=== PATIENT | female | born 1970 | race Hispanic/Latino ===

== ENCOUNTER 2019-04-23 21:16 | Emergency (ER) | payer BC ==
[~2019-04-23] VITALS: Ht 170.2 cm; Wt 90.7 kg
--- OUTSIDE RECORDS SUMMARY | 2019-04-23 21:19 | XMS REPORT | Continuity of Care Document ---
Author Author iTiffin Address Unknown Phone Unavailable Care Team Providers Care Security Operations Specialist Name Role Phone [employer] Unavailable Unavailable Problems Problem Status Onset Date Classification Date Reported Comments Source Systemic lupus erythematosus Active 08/24/2017 Problem 02/23/2018 [facility] Hypothyroidism Active 08/24/2017 Problem 02/23/2018 [facility] Medications Medication Details Route Status Patient Instructions Ordering Provider Order Date Source Levothyroxine 125 McG Tablet Take 125 mcg by mouth daily. Oral No Longer Active 08/24/2017 [facility] Hydroxychloroquine 200 Mg Tablet Plaquenil 200 Mg Tablet Take 2 tablets by mouth daily. Oral Active 08/24/2017 [facility] Prednisone 5 Mg Tablet Take 1 tablet by mouth. Oral Active 08/24/2017 [facility] Levothyroxine 88 McG Tablet Synthroid 88 McG Tablet Take 1 tablet by mouth daily One daily, 1.5 tabs on sundays. Oral Active 08/24/2017 [facility] Famotidine 20 Mg Tablet Pepcid 20 Mg Tablet Take 1 tablet by mouth 2 times daily. Oral Active 08/24/2017 [facility] Allergies, Adverse Reactions, Alerts No Known Medication Allergies Immunizations Immunization Date Given Site Status Last Updated Comments Source Influenza <Unspecified> 07/25/2017 completed [facility] TDap (Tetanus Toxoid, Reduced Diphtheria Toxoid And Acellular Pertussis, Absorbed) 08/24/2014 completed [facility] Results Order Name Results Value Reference Range Date Interpretation Comments Source LUPUS ANTICOAGULANT PANEL DRVV Screen Ratio 1.00 Ratio 0.00 - 1.20 09/06/2017 [facility] LUPUS ANTICOAGULANT PANEL PTT-LA 30.7 Sec 26 - 40 09/06/2017 [facility] LUPUS ANTICOAGULANT PANEL LA Interpretation There is no evidence of lupus anticoagulant by two screening tests (DRVV and PTT-LA). Unless there is a clinical suspicion, no further testing for LA is indicated 09/06/2017 [facility] ANN ANN Screen Positive NEG 09/06/2017 Abnormal [facility] ANN ANN Pattern SSA/Ro present, not titered Pattern 09/06/2017 [facility] ANN Lab Interpretation Abnormal 09/06/2017 [facility] ANTI DSDNA BY CRITHIDIA Anti dsDNA Negative NEG Titer 09/06/2017 [facility] ANTI WEBBER AB Anti-Webber Negative EU/mL 09/06/2017 REFERENCE RANGE:
Negative<16
[id number]
Positive>20

[facility] ANTI WEBBER MANAGER EMERGENCY AB Anti-Sm/MANAGER EMERGENCY Negative EU/mL 09/06/2017 REFERENCE RANGE:
Negative<16
[id number]
Positive>20

[facility] ANTI-CARDIOLIP AB Anti-Cardiolip,IgG 6.9 GPL 09/06/2017 Negative<15
Indeterminate 15-22.5
Positive >22.5

[facility] ANTI-CARDIOLIP AB Anti-Cardiolip,IgM 8.9 MPL 09/06/2017 Negative<15
Indeterminate 15-22.5
Positive >22.5

[facility] ANTI-CARDIOLIP AB Anti-Cardiolip,IgA 6.6 APL 09/06/2017 Negative<15
Indeterminate 15-22.5
Positive >22.5

[facility] CK CK 28 30 - 200 09/06/2017 Low [facility] CK Lab Interpretation Abnormal 09/06/2017 [facility] CRP, HIGH SENS CRP, high sens 0.476 0 - 0.3 09/06/2017 High [facility] CRP, HIGH SENS Lab Interpretation Abnormal 09/06/2017 [facility] HEPATITIS PANEL HCV IgG Negative NEG 09/06/2017 [facility] HEPATITIS PANEL HBsAg Negative NEG 09/06/2017 [facility] HEPATITIS PANEL HAV, IgM Negative NEG 09/06/2017 [facility] HEPATITIS PANEL HBcAb, IgM Negative NEG 09/06/2017 [facility] SED RATE Sed Rate 7 mm/Hr <20 09/06/2017 [facility] SJOGREN'S AB Anti SSA Positive 0 - 15 09/06/2017 REFERENCE RANGE:
Negative<16
[id number]
Positive>20

[facility] SJOGREN'S AB Anti SSB Negative 0 - 15 09/06/2017 REFERENCE RANGE:
Negative<16
[id number]
Positive>20

[facility] H. PYLORI STOOL AG H pylori Ag Stool Negative Reference range: Negative 08/25/2017 [facility] MAMMOGRAM BILAT SCREEN DIGITAL <p>IMPRESSION: BENIGN</p><p>There is no mammographic evidence of malignancy. A 1 year </p><p>screening mammogram is recommended.</p><p>This document has been electronically signed.</p><p> </p><p>Glenny Bender M.D.</p><p>to/penrad:08/24/2017 13:45:04</p><p> </p><p>[place]: Ms. Louisa Osman RT(R)(M), [place] </p><p>[facility]</p><p>letter sent: Benign Exam</p><p>Mammogram BI-RADS: 2 Benign G0202 Z12.31</p> IMPRESSION: BENIGNThere is no mammographic evidence of malignancy. A 1 year screening mammogram is recommended.This document has been electronically signed. Glenny Bender M.D.to/penrad:08/24/2017 13:45:04 [place]: [facility] Louisa Os[facility] RT(R)(M[facility] ExamMammogram BI-RADS: 2 Benign G0202 Z12.31 08/24/2017 [facility] MAMMOGRAM BILAT SCREEN DIGITAL <p> </p><p>#[id number] - MAMMOGRAM BILAT SCREEN DIGITAL</p><p>BILATERAL DIGITAL SCREENING MAMMOGRAM WITH CAD: 08/24/2017</p><p>CLINICAL: Screening for malignancy.</p><p> </p><p>No prior exams were available for comparison.</p><p>The tissue of both breasts is extremely dense, which lowers the </p><p>sensitivity of mammography.</p><p>Current study was also evaluated with a Computer Aided Detection </p><p>(CAD) system.</p><p>There are benign calcifications in both breasts.There also are </p><p>benign masses in both breasts.</p><p>No significant masses, calcifications, or other findings are seen </p><p>in either breast.</p><p> </p> #[id number] - MAMMOGRAM BILAT SCREEN DIGITALBILATERAL DIGITAL SCREENING MAMMOGRAM WITH CAD: 08/24/2017CLINICAL: Screening for malignancy. No prior exams were available for comparison.The tissue of both breasts is extremely dense, which lowers the sensitivity of mammography.Current study was also evaluated with a Computer Aided Detection (CAD) system.There are benign calcifications in both breasts.There also are benign masses in both breasts.No significant masses, calcifications, or other findings are seen in either breast. 08/24/2017 [facility] MAMMOGRAM BILAT SCREEN DIGITAL <p styleCode="header">Interface, Rad/Mammog In - 08/24/2017 2:02 PM PHYSICAL METALLURGIST</p><p>
<span>#[id number] - MAMMOGRAM BILAT SCREEN DIGITAL</span>
<span>BILATERAL DIGITAL SCREENING MAMMOGRAM WITH CAD: 08/24/2017</span>
<span>CLINICAL: Screening for malignancy. </span>

<span>No prior exams were available for comparison. </span>
<span>The tissue of both breasts is extremely dense, which lowers the </span>
<span>sensitivity of mammography. </span><br/&a mp;gt;<span>Current study was also evaluated with a Computer Aided Detection </span>
<span>(CAD) system. </span>
<span>There are benign calcifications in both breasts. There also are </span>
<span>benign masses in both breasts. </span>
<span>No significant masses, calcifications, or other findings are seen </span>
<span>in either breast. </span& gt;

<span>IMPRESSION</span>
<span>IMPRESSION: BENIGN</span>
<span>There is no mammographic evidence of malignancy. A 1 year </span>
<span>screening mammogram is recommended. </span>
<span>This document has been electronically signed.</span>

<span>Glenny Bender M.D. </span>
<span>to/penrad:08/24/2017 13:45:04 </span>

<span>[place]: Ms. Louisa Osman RT(R)(M), [place] </span>
<span>[facility]</span>
<span>letter sent: Benign Exam </span>
<span>Mammogram BI-RADS: 2 Benign G0202 Z12.31</span></p> Interface, Rad/Mammog In - 08/24/2017 2:02 PM PHYSICAL METALLURGIST #[id number] - MAMMOGRAM BILAT SCREEN DIGITAL BILATERAL DIGITAL SCREENING MAMMOGRAM WITH CAD: 08/24/2017 CLINICAL: Screening for malignancy. No prior exams were available for comparison. The tissue of both breasts is extremely dense, which lowers the sensitivity of mammography. Current study was also evaluated with a Computer Aided Detection (CAD) system. There are benign calcifications in both breasts. There also are benign masses in both breasts. No significant masses, calcifications, or other findings are seen in either breast. IMPRESSION IMPRESSION: BENIGN There is no mammographic evidence of malignancy. A 1 year screening mammogram is recommended. This document has been electronically signed. Glenny Bender M.D. to/penrad:08/24/2017 13:45:04 [place]: Ms. Louisa Osman RT(R)(M), [facility] letter sent: Benign Exam Mammogram BI-RADS: 2 Benign G0202 Z12.31 08/24/2017 [facility] CBC/DIFF WBC 4.1 4.5 - 11 08/24/2017 Low [facility] CBC/DIFF RBC 3.90 M/uL 4.20 - 5.40 08/24/2017 [facility] CBC/DIFF Hemoglobin 12.8 12 - 16 08/24/2017 [facility] CBC/DIFF Hematocrit 39.6 37 - 47 08/24/2017 [facility] CBC/DIFF MCV 102 82 - 92 08/24/2017 High [facility] CBC/DIFF MCH 32.8 27 - 32 08/24/2017 High [facility] CBC/DIFF MCHC 32.3 32 - 36 08/24/2017 [facility] CBC/DIFF RDW 48.1 36.4 - 46.3 08/24/2017 High [facility] CBC/DIFF Platelet 244 150 - 400 08/24/2017 [facility] CBC/DIFF Mean Platelet Volume 10.2 9.4 - 12.4 08/24/2017 [facility] CBC/DIFF Percent NRBC 0.0 08/24/2017 [facility] CBC/DIFF Absolute NRBC 0.00 08/24/2017 [facility] CBC/DIFF Neutrophil 45.7 34 - 70 08/24/2017 [facility] CBC/DIFF Lymphocyte 43.4 20 - 50 08/24/2017 [facility] CBC/DIFF Monocyte 9.5 5 - 12 08/24/2017 [facility] CBC/DIFF Eosinophil 0.7 0.7 - 5 08/24/2017 [facility] CBC/DIFF Basophil 0.2 0.1 - 1.2 08/24/2017 [facility] CBC/DIFF Pct Immat Gran 0.5 0.0 - 0.5 08/24/2017 [facility] CBC/DIFF Neutrophil, Abs 1.88 1.56 - 6.13 08/24/2017 [facility] CBC/DIFF Lymphocyte, Abs 1.79 1.18 - 3.74 08/24/2017 [facility] CBC/DIFF Monocyte, Abs 0.39 0.24 - 0.36 08/24/2017 High [facility] CBC/DIFF Eosinophil, Abs 0.03 0.04 - 0.36 08/24/2017 Low [facility] CBC/DIFF Basophil, Abs 0.01 0.01 - 0.08 08/24/2017 [facility] CBC/DIFF Absol Immat Gran 0.02 0 - 0.03 08/24/2017 [facility] CBC/DIFF Lab Interpretation Abnormal 08/24/2017 [facility] COMPREHENSIVE METABOLIC PANEL(DBIL NOT INCLUDED) Albumin 3.5 3.4 - 5 08/24/2017 [facility] COMPREHENSIVE METABOLIC PANEL(DBIL NOT INCLUDED) Calcium 8.4 8.5 - 10.2 08/24/2017 Low [facility] COMPREHENSIVE METABOLIC PANEL(DBIL NOT INCLUDED) CO2 27.5 21 - 32 08/24/2017 [facility] COMPREHENSIVE METABOLIC PANEL(DBIL NOT INCLUDED) Chloride 104 98 - 107 08/24/2017 [facility] COMPREHENSIVE METABOLIC PANEL(DBIL NOT INCLUDED) Creatinine 0.58 0.6 - 1.3 08/24/2017 Low [facility] COMPREHENSIVE METABOLIC PANEL(DBIL NOT INCLUDED) Glucose 77 70 - 99 08/24/2017 [facility] COMPREHENSIVE METABOLIC PANEL(DBIL NOT INCLUDED) Alk Phos 77 45 - 117 08/24/2017 [facility] COMPREHENSIVE METABOLIC PANEL(DBIL NOT INCLUDED) Potassium 4.4 3.5 - 5.1 08/24/2017 [facility] COMPREHENSIVE METABOLIC PANEL(DBIL NOT INCLUDED) Sodium 140 136 - 145 08/24/2017 [facility] COMPREHENSIVE METABOLIC PANEL(DBIL NOT INCLUDED) ALT 43 12 - 78 08/24/2017 [facility] COMPREHENSIVE METABOLIC PANEL(DBIL NOT INCLUDED) AST 32 15 - 37 08/24/2017 [facility] COMPREHENSIVE METABOLIC PANEL(DBIL NOT INCLUDED) Urea Nitrogen 11 7 - 18 08/24/2017 [facility] COMPREHENSIVE METABOLIC PANEL(DBIL NOT INCLUDED) T Bilirubin 0.4 0.2 - 1 08/24/2017 [facility] COMPREHENSIVE METABOLIC PANEL(DBIL NOT INCLUDED) T Protein 7.1 6.4 - 8.2 08/24/2017 [facility] COMPREHENSIVE METABOLIC PANEL(DBIL NOT INCLUDED) GFR, Estimated >60 mL/min/1.73 m2 08/24/2017 [facility] COMPREHENSIVE METABOLIC PANEL(DBIL NOT INCLUDED) GFR, Estim, Afr-Am >60 mL/min/1.73 m2 08/24/2017 [facility] COMPREHENSIVE METABOLIC PANEL(DBIL NOT INCLUDED) Anion Gap 8.5 08/24/2017 [facility] COMPREHENSIVE METABOLIC PANEL(DBIL NOT INCLUDED) Lab Interpretation Abnormal 08/24/2017 [facility] FREE T4 Free T4 0.79 0.61 - 1.12 08/24/2017 females:
1st Trimester-0.52-1.10 ng/dL
2nd Trimester=0.45- 0.99 ng/dL
3rd Trimester=0.48-0.95 ng/dL

[facility] HEMOGLOBIN A1C Hemoglobin A1c 5.6 4.3 - 6.1 08/24/2017 [facility] HEMOGLOBIN A1C Est Average Gluc 114.0 08/24/2017 [facility] HIV-1/HIV-2 ROUTINE SCREENING HIV-1/HIV-2 Negative NEG 08/24/2017 [facility] LIPID PROFILE Cholesterol 156 <200 08/24/2017 REFERENCE RANGE:
Desirable: <200 mg/dL
Borderline: 200-240 mg/dL
High Risk: >240 mg/dL

[facility] LIPID PROFILE Triglyceride 81 <150 08/24/2017 REFERENCE RANGE:
Normal: <150 mg/dL
Borderline High: 150-199 mg/dL
High: 200-499 mg/dL
Very High: >ry=991 mg/dL

[facility] LIPID PROFILE HDL 53 40 - 60 08/24/2017 Increased CHD risk: <40 mg/dL
Decreased CHD risk: >60 mg/dL

[facility] LIPID PROFILE LDL 87 08/24/2017 REFERENCE RANGE:
Optimal: <100 mg/dL
Near Optimal: 100-129 mg/dL
Borderline High: 130-159 mg/dL
High: 160-189 mg/dL
Very High: >rr=969 mg/dL

[facility] TSH TSH 2.32 uIU/mL 0.45 - 3.50 08/24/2017 [facility] URINE CULTURE Culture Culture Resembles mixed [facility]ro-genital marylou [facility] Color Yellow 08/24/2017 [facility] UA CHEMISTRIES Clarity Clear 08/24/2017 [facility] UA CHEMISTRIES Spec [place] 1.015 1.001 - 1.035 08/24/2017 [facility] UA CHEMISTRIES pH 6.0 5 - 8 08/24/2017 [facility] UA CHEMISTRIES Protein Negative NEG 08/24/2017 [facility] UA CHEMISTRIES Glucose Negative NEG 08/24/2017 [facility] UA CHEMISTRIES Ketone Negative NEG 08/24/2017 [facility] UA CHEMISTRIES Bilirubin Negative NEG 08/24/2017 [facility] UA CHEMISTRIES Nitrate Negative NEG 08/24/2017 [facility] UA CHEMISTRIES Urobilinogen 0.2 0.2 - 1 08/24/2017 [facility] UA CHEMISTRIES Leukocyte Negative NEG 08/24/2017 [facility] UA CHEMISTRIES Blood Negative NEG 08/24/2017 [facility] Pathology Reports No Data Provided for This Section Diagnostic Reports No Data Provided for This Section Consultation Notes No Data Provided for This Section Discharge Summaries No Data Provided for This Section History and Physicals No Data Provided for This Section Vital Signs Vital Sign Value Date Comments Source Systolic (mm Hg) 113 08/24/2017 [facility] Diastolic (mm Hg) 73 08/24/2017 [facility] Heart Rate 68 08/24/2017 [facility] Temperature Oral (F) 36.61 Andra 08/24/2017 [facility] Respitory Rate 18 08/24/2017 [facility] Height 168 cm 08/24/2017 [facility] Weight 91.173 08/24/2017 [facility] BMI Calculated 32.30 08/24/2017 [facility] Encounters Location Location Details Encounter Type Encounter Number Reason For Visit Attending Provider ADM Date DC Date Status Source Pharmacy [place] [facility] Visit [id number] 08/24/2017 [facility] [place] Office Visit [id number] Systemic lupus erythematosus, unspecified SLE type, unspecified organ involvement status Hypothyroidism, unspecified type Preventative health care S/P tubal ligation Dysuria Gastroesophageal reflux disease, esophagitis presence not specified Current chronic use of systemic steroids Bakari Becerra MD 08/24/2017 08/24/2017 [facility] Mammography [place] Ancillary Procedure [id number] Preventative health care Claudia Choudhury Physician 08/24/2017 08/24/2017 [facility] [place] [facility] Visit [id number] 08/25/2017 [facility] [employer] Telephone [id number] Gaetano Aponte 08/31/2017 [facility] ASK YOUR NURSE PROGRAM Nurse Triage [id number] Stormy Nieto RN 08/31/2017 [facility] [place] Orders Only [id number] Systemic lupus erythematosus, unspecified SLE type, unspecified organ involvement status Claudia Choudhury Physician 08/31/2017 [facility] Procedures No Data Provided for This Section Assessment and Plan No Data Provided for This Section Plan of Care Plan of Care Date Source BREAST CANCER SCRN (YEARLY) 08/24/2018 [facility] CERVICAL CANCER SCRN (3 YRS) 05/12/2018 [facility] Social History Social History Date Source Tobacco UseTypesPacks/DayYears UsedDate Never Smoker Smokeless Tobacco: Never Used Alcohol UseDrinks/Weekoz/WeekComments No Sex Assigned at BirthDate Recorded Not on file 08/24/2017 [facility] Family History Value Date Source Medical HistoryRelationNameComments No Known Problems Father No Known Problems Mother RelationNameStatusComments Father Mother 02/23/2018 [facility] Medical HistoryRelationNameComments No Known Problems Father No Known Problems Mother RelationNameStatusComments Father Mother 02/22/2018 [facility] Medical HistoryRelationNameComments No Known Problems Father No Known Problems Mother RelationNameStatusComments Father Mother 02/21/2018 [facility] Advance Directives No Data Provided for This Section Functional Status No Data Provided for This Section
--- OUTSIDE RECORDS SUMMARY | 2019-04-23 21:19 | XMS REPORT | Clinical Summary ---
Author Author [facility] Organization [facility] Address Unknown Phone Unavailable Care Team Providers Care Land Resource Specialist Name Role Phone Claudia Choudhury Physician PCP Allergies No Known Allergies Current Medications Prescription Sig. Disp. Refills Start End Date Status Date hydroxychloroquine Take 2 tablets by mouth 08/24/20 Active (PLAQUENIL) 200 mg tablet daily. 17 predniSONE (DELTASONE) 5 Take 1 tablet by mouth. 08/24/20 Active mg tablet 17 levothyroxine (SYNTHROID) Take 1 tablet by mouth 08/24/20 Active 88 mcg tablet daily One daily, 1.5 tabs 17 on sundays. famotidine (PEPCID) 20 mg Take 1 tablet by mouth 2 60 tablet 1 08/24/20 Active tabletIndications: times daily. 17 Gastroesophageal reflux disease, esophagitis presence not specified levothyroxine (SYNTHROID) Take 125 mcg by mouth 08/24/20 Discontin 125 mcg tablet daily. 17 ued Active Problems Problem Noted Date Systemic lupus erythematosus 08/24/2017 Hypothyroidism 08/24/2017 Encounters Date Type Specialty Care Team Description 08/31/2017 Telephone Gaetano Aponte Interpretation 08/31/2017 Nurse Triage Stormy Nieto RN 08/31/2017 Orders Only Family Practice Claudia Choudhury, Physician Systemic lupus erythematosus, unspecified SLE type, unspecified organ involvement status (Primary Dx) 08/25/2017 Pharmacy Visit 08/24/2017 Ancillary Radiology Claudia Choudhury, Physician Preventative health care Procedure 08/24/2017 Office Visit Family Practice Bakari Becerra MD Systemic lupus Claudia Choudhury, Physician erythematosus, unspecified SLE type, unspecified organ involvement status (Primary Dx); Hypothyroidism, unspecified type; Preventative health care; S/P tubal ligation; Dysuria; Gastroesophageal reflux disease, esophagitis presence not specified; Current chronic use of systemic steroids 08/24/2017 Pharmacy Visit after 02/20/2017 Immunizations Name Dates Previously Given Next Due Influenza <Unspecified> 07/25/2017 TDap (Tetanus Toxoid, 08/24/2014 Reduced Diphtheria Toxoid And Acellular Pertussis, Absorbed) Family History Medical History Relation Name Comments No Known Problems Father No Known Problems Mother Relation Name Status Comments Father Mother Social History Tobacco Use Types Packs/Day Years Used Date Never Smoker Smokeless Tobacco: Never Used Alcohol Use Drinks/Week oz/Week Comments No Sex Assigned at Date Recorded Not on file Last Filed Vital Signs Vital Sign Reading Time Taken Blood Pressure 113/73 08/24/2017 8:33 AM RODDING MACHINE TENDER Pulse 68 08/24/2017 8:33 AM RODDING MACHINE TENDER Temperature 36.6 C (97.9 F) 08/24/2017 8:33 AM RODDING MACHINE TENDER Respiratory Rate 18 08/24/2017 8:33 AM RODDING MACHINE TENDER Oxygen Saturation - - Inhaled Oxygen - - Concentration Weight 91.2 kg (201 lb) 08/24/2017 8:33 AM RODDING MACHINE TENDER Height 168 cm (5' 6.14") 08/24/2017 8:33 AM RODDING MACHINE TENDER Body Mass Index 32.3 08/24/2017 8:33 AM RODDING MACHINE TENDER Plan of Treatment Health Maintenance Due Date Last Done Comments CERVICAL CANCER SCRN (3 05/12/2018 05/12/2015 (Previously completed - YRS) External) BREAST CANCER SCRN 08/24/2018 08/24/2017 (YEARLY) Goals Patient Goal Type Goal Recent Progress Patient-Stat Author ed? Lifestyle Eat Healthy No Janeth Sung Results * LUPUS ANTICOAGULANT PANEL (09/06/2017 12:58 PM) Component Value Ref Range DRVV Screen Ratio 1.00 0.00 - 1.20 Ratio PTT-LA 30.7 26 - 40 Sec LA Interpretation There is no evidence of lupus anticoagulant by two screening tests (DRVV and PTT-LA). Unless there is a clinical suspicion, no further testing for LA is indicated Specimen Performing Laboratory Blood MISYS * SJOGREN'S AB (09/06/2017 12:57 PM) Component Value Ref Range Anti SSA Positive 0 - 15 EU/mL Comment: REFERENCE RANGE: Negative<16 [id number] Positive>20 Anti SSB Negative 0 - 15 EU/mL Comment: REFERENCE RANGE: Negative<16 [id number] Positive>20 Specimen Performing Laboratory Blood MISYS * ANTI WEBBER TOBACCO ACREAGE MEASURER AB (09/06/2017 12:57 PM) Component Value Ref Range Anti-Sm/TOBACCO ACREAGE MEASURER Negative EU/mL Comment: REFERENCE RANGE: Negative<16 [id number] Positive>20 Specimen Performing Laboratory Blood MISYS * ANTI WEBBER AB (09/06/2017 12:57 PM) Component Value Ref Range Anti-Webber Negative EU/mL Comment: REFERENCE RANGE: Negative<16 [id number] Positive>20 Specimen Performing Laboratory Blood MISYS * CRP, HIGH SENS (09/06/2017 12:57 PM) Component Value Ref Range CRP, high sens 0.476 (H) 0.000 - 0.300 mg/dL Specimen Performing Laboratory Blood MISYS * ANTI-CARDIOLIP AB (09/06/2017 12:57 PM) Component Value Ref Range Anti-Cardiolip,IgG 6.9 GPL Comment: Negative<15 Indeterminate 15-22.5 Positive >22.5 Anti-Cardiolip,IgM 8.9 MPL Comment: Negative<15 Indeterminate 15-22.5 Positive >22.5 Anti-Cardiolip,IgA 6.6 APL Comment: Negative<15 Indeterminate 15-22.5 Positive >22.5 Specimen Performing Laboratory Blood MISYS * SED RATE (09/06/2017 12:57 PM) Component Value Ref Range Sed Rate 7 <20 mm/Hr Specimen Performing Laboratory Blood MISYS * HEPATITIS PANEL (09/06/2017 12:57 PM) Component Value Ref Range HCV IgG Negative NEG HBsAg Negative NEG HAV, IgM Negative NEG HBcAb, IgM Negative NEG Specimen Performing Laboratory Blood MISYS * ANTI DSDNA BY CRITHIDIA (09/06/2017 12:57 PM) Component Value Ref Range Anti dsDNA Negative NEG Titer Specimen Performing Laboratory Blood MISYS * CK (09/06/2017 12:57 PM) Component Value Ref Range CK 28 (L) 30 - 200 U/L Specimen Performing Laboratory Blood MISYS * ANN (09/06/2017 12:57 PM) Component Value Ref Range ANN Screen Positive (A) NEG ANN Pattern SSA/Ro present, not titered Pattern Specimen Performing Laboratory Blood MISYS * H. PYLORI STOOL AG (08/25/2017 3:44 PM) Component Value Ref Range H pylori Ag Stool Negative Reference range: Negative Specimen Performing Laboratory Stool MISYS * MAMMOGRAM BILAT SCREEN DIGITAL (08/24/2017 12:32 PM) Specimen Performing Laboratory SMS Impressions IMPRESSION: BENIGN There is no mammographic evidence of malignancy. A 1 year screening mammogram is recommended. This document has been electronically signed. Glenny Bender M.D. to/penrad:08/24/2017 13:45:04 Career And Guidance Counselor: Ms. Louisa Osman RTIlda)([place]), [facility] letter sent: Benign Exam Mammogram BI-RADS: 2 Benign G0202 Z12.31 Narrative #[id number] - MAMMOGRAM BILAT SCREEN DIGITAL BILATERAL DIGITAL SCREENING MAMMOGRAM WITH CAD: 08/24/2017 CLINICAL: Screening for malignancy. No prior exams were available for comparison. The tissue of both breasts is extremely dense, which lowers the sensitivity of mammography. Current study was also evaluated with a Computer Aided Detection (CAD) system. There are benign calcifications in both breasts.There also are benign masses in both breasts. No significant masses, calcifications, or other findings are seen in either breast. Procedure Note Interface, Rad/Mammog In - 08/24/2017 2:02 PM RODDING MACHINE TENDER #[id number] - MAMMOGRAM BILAT SCREEN DIGITAL BILATERAL DIGITAL [...] electronically signed. Glenny Bender M.D. to/penrad:08/24/2017 13:45:04 Career And Guidance Counselor: Ms. Louisa Osman RT(R)(M), [facility] letter sent: Benign Exam Mammogram BI-RADS: 2 Benign G0202 Z12.31 * HIV-1/HIV-2 ROUTINE SCREENING (08/24/2017 9:48 AM) Component Value Ref Range HIV-1/HIV-2 Negative NEG Specimen Performing Laboratory MISYS * HEMOGLOBIN A1C (08/24/2017 9:48 AM) Component Value Ref Range Hemoglobin A1c 5.6 4.3 - 6.1 % Est Average Gluc 114.0 mg/dL Specimen Performing Laboratory Blood MISYS * COMPREHENSIVE METABOLIC PANEL(DBIL NOT INCLUDED) (08/24/2017 9:48 AM) Component Value Ref Range Albumin 3.5 3.4 - 5.0 g/dL Calcium 8.4 (L) 8.50 - 10.20 mg/dL CO2 27.5 21 - 32 mmol/L Chloride 104 98 - 107 mmol/L Creatinine 0.58 (L) 0.60 - 1.30 mg/dL Glucose 77 70 - 99 mg/dL Alk Phos 77 45 - 117 U/L Potassium 4.4 3.50 - 5.10 mmol/L Sodium 140 136 - 145 mmol/L ALT 43 12 - 78 U/L AST 32 15 - 37 U/L Urea Nitrogen 11 7 - 18 mg/dL T Bilirubin 0.4 0.2 - 1.0 mg/dL T Protein 7.1 6.4 - 8.2 g/dL GFR, Estimated >60 mL/min/1.73 m2 GFR, Estim, Afr-Am >60 mL/min/1.73 m2 Anion Gap 8.5 Specimen Performing Laboratory Blood MISYS * TSH (08/24/2017 9:48 AM) Component Value Ref Range TSH 2.32 0.45 - 3.50 uIU/mL Specimen Performing Laboratory Blood MISYS * FREE T4 (08/24/2017 9:48 AM) Component Value Ref Range Free T4 0.79 0.61 - 1.12 ng/dl Comment: females: 1st Trimester-0.52-1.10 ng/dL 2nd Trimester=0.45-0.99 ng/dL 3rd Trimester=0.48-0.95 ng/dL Specimen Performing Laboratory Blood MISYS * LIPID PROFILE (08/24/2017 9:48 AM) Component Value Ref Range Cholesterol 156 <200 mg/dL Comment: REFERENCE RANGE: Desirable: <200 mg/dL Borderline: 200-240 mg/dL High Risk: >240 mg/dL Triglyceride 81 <150 mg/dL Comment: REFERENCE RANGE: Normal: <150 mg/dL Borderline High: 150-199 mg/dL High: 200-499 mg/dL Very High: >ij=514 mg/dL HDL 53 40 - 60 mg/dL Comment: Increased CHD risk: <40 mg/dL Decreased CHD risk: >60 mg/dL LDL 87 mg/dL Comment: REFERENCE RANGE: Optimal: <100 mg/dL Near Optimal: 100-129 mg/dL Borderline High: 130-159 mg/dL High: 160-189 mg/dL Very High: >uv=132 mg/dL Specimen Performing Laboratory Blood MISYS * URINE CULTURE (08/24/2017 9:48 AM) Component Value Ref Range Spec Description Urine Order Comments None Culture Resembles mixed uro-genital marylou Report Status Final 08/27/2017 Specimen Performing Laboratory Urine - URINE MISYS * CBC/DIFF (08/24/2017 9:48 AM) Component Value Ref Range WBC 4.1 (L) 4.5 - 11.0 K/uL RBC 3.90 (L) 4.20 - 5.40 M/uL Hemoglobin 12.8 12.0 - 16.0 g/dL Hematocrit 39.6 37.0 - 47.0 % MCV 102 (H) 82 - 92 fL MCH 32.8 (H) 27.0 - 32.0 pg MCHC 32.3 32.0 - 36.0 g/dL RDW 48.1 (H) 36.4 - 46.3 fL Platelet 244 150 - 400 K/uL Mean Platelet Volume 10.2 9.4 - 12.4 fL Percent NRBC 0.0 Absolute NRBC 0.00 Neutrophil 45.7 34.0 - 70.0 % Lymphocyte 43.4 20.0 - 50.0 % Monocyte 9.5 5.0 - 12.0 % Eosinophil 0.7 0.7 - 5.0 % Basophil 0.2 0.1 - 1.2 % Pct Immat Gran 0.5 0.0 - 0.5 Neutrophil, Abs 1.88 1.56 - 6.13 K/uL Lymphocyte, Abs 1.79 1.18 - 3.74 K/uL Monocyte, Abs 0.39 (H) 0.24 - 0.36 K/uL Eosinophil, Abs 0.03 (L) 0.04 - 0.36 K/uL Basophil, Abs 0.01 0.01 - 0.08 K/uL Absol Immat Gran 0.02 0.00 - 0.03 K/uL Specimen Performing Laboratory Blood MISYS * UA CHEMISTRIES (08/24/2017 9:25 AM) Component Value Ref Range Color Yellow Clarity Clear Spec [place] 1.015 1.001 - 1.035 pH 6.0 5 - 8 Protein Negative NEG Glucose Negative NEG Ketone Negative NEG Bilirubin Negative NEG Nitrate Negative NEG Urobilinogen 0.2 0.2 - 1.0 EU/dL Leukocyte Negative NEG Blood Negative NEG Specimen Performing Laboratory Urine MISYS after 02/20/2017
--- OUTSIDE RECORDS SUMMARY | 2019-04-23 21:20 | XMS REPORT ---
Author Author [facility] Address Unknown Phone Unavailable Care Team Providers Care Medical Oncologist Name Role Phone Unavailable Unavailable Problems This patient has no known problems. Allergies, Adverse Reactions, Alerts This patient has no known allergies or adverse reactions. Medications This patient has no known medications. Encounters Start Date/Time End Date/Time Encounter Type Admission Type Attending [facility] Care Department Encounter ID 2017-11-21 00:00:00 2017-11-21 00:00:00 Outpatient [facility] [id number] 2017-09-06 12:59:09 2017-09-06 12:59:09 Outpatient [facility] [id number] 2017-08-25 15:45:05 2017-08-25 15:45:05 Outpatient [facility] [id number] 2017-08-24 10:46:20 2017-08-24 10:46:20 Outpatient [facility] [id number] 2017-08-24 09:49:55 2017-08-24 09:49:55 Outpatient [facility] [id number] 2017-08-24 08:29:05 2017-08-24 08:29:05 Outpatient [facility] [id number]
--- OUTSIDE RECORDS SUMMARY | 2019-04-23 21:20 | XMS REPORT | Clinical Summary ---
Author Author [facility] Organization [facility] Address Unknown Phone Unavailable Care Team Providers Care Shot Hole Shooter Name Role Phone Claudia Choudhury Physician PCP [...] of systemic steroids 08/24/2017 Pharmacy Visit after 02/22/2017 Immunizations Name Dates Previously Given Next Due [...] Taken Blood Pressure 113/73 08/24/2017 8:33 AM COST CONSULTANT Pulse 68 08/24/2017 8:33 AM COST CONSULTANT Temperature 36.6 C (97.9 F) 08/24/2017 8:33 AM COST CONSULTANT Respiratory Rate 18 08/24/2017 8:33 AM COST CONSULTANT Oxygen Saturation - - Inhaled Oxygen - - Concentration Weight 91.2 kg (201 lb) 08/24/2017 8:33 AM COST CONSULTANT Height 168 cm (5' 6.14") 08/24/2017 8:33 AM COST CONSULTANT Body Mass Index 32.3 08/24/2017 8:33 AM COST CONSULTANT Plan of Treatment Health Maintenance Due Date [...] - 15 EU/mL Comment: REFERENCE RANGE: Negative<16 [id number] Positive>20 Anti SSB Negative 0 - 15 EU/mL Comment: REFERENCE RANGE: Negative<16 [id number] Positive>20 Specimen Performing Laboratory Blood MISYS * ANTI WEBBER CHAIR MENDER AB (09/06/2017 12:57 PM) Component Value Ref Range Anti-Sm/CHAIR MENDER Negative EU/mL Comment: REFERENCE RANGE: Negative<16 [id number] Positive>20 Specimen Performing Laboratory Blood MISYS * ANTI WEBBER AB (09/06/2017 12:57 PM) Component Value Ref Range Anti-Webber Negative EU/mL Comment: REFERENCE RANGE: Negative<16 [id number] Positive>20 Specimen Performing Laboratory Blood MISYS * [...] electronically signed. Glenny Bender M.D. to/penrad:08/24/2017 13:45:04 Retail Cosmetics Sales Beauty Advisor: Ms. Louisa Osman RTIlda)([place]), [facility] letter sent: Benign Exam Mammogram BI-RADS: 2 Benign G0202 Z12.31 Narrative #[id number] - MAMMOGRAM BILAT SCREEN DIGITAL BILATERAL DIGITAL [...] Interface, Rad/Mammog In - 08/24/2017 2:02 PM COST CONSULTANT #[id number] - MAMMOGRAM BILAT SCREEN DIGITAL BILATERAL DIGITAL [...] electronically signed. Glenny Bender M.D. to/penrad:08/24/2017 13:45:04 Retail Cosmetics Sales Beauty Advisor: Ms. Louisa Osman RT(R)(M), [facility] letter sent: Benign Exam Mammogram BI-RADS: 2 [...] 150-199 mg/dL High: 200-499 mg/dL Very High: >nz=382 mg/dL HDL 53 40 - 60 mg/dL Comment: Increased CHD risk: <40 mg/dL Decreased CHD risk: >60 mg/dL LDL 87 mg/dL Comment: REFERENCE RANGE: Optimal: <100 mg/dL Near Optimal: 100-129 mg/dL Borderline High: 130-159 mg/dL High: 160-189 mg/dL Very High: >dy=291 mg/dL Specimen Performing Laboratory Blood MISYS * [...] Ref Range Color Yellow Clarity Clear Spec [place] 1.015 1.001 - 1.035 pH 6.0 5 - 8 Protein Negative NEG Glucose Negative NEG Ketone Negative NEG Bilirubin Negative NEG Nitrate Negative NEG Urobilinogen 0.2 0.2 - 1.0 EU/dL Leukocyte Negative NEG Blood Negative NEG Specimen Performing Laboratory Urine MISYS after 02/22/2017
--- OUTSIDE RECORDS SUMMARY | 2019-04-23 21:20 | XMS REPORT | Clinical Summary ---
Author Author [facility] Organization [facility] Address Unknown Phone Unavailable Care Team Providers Care Architectural Draftsperson Name Role Phone Claudia Choudhury Physician PCP [...] of systemic steroids 08/24/2017 Pharmacy Visit after 02/21/2017 Immunizations Name Dates Previously Given Next Due [...] Taken Blood Pressure 113/73 08/24/2017 8:33 AM MANAGER OF COMPLIANCE Pulse 68 08/24/2017 8:33 AM MANAGER OF COMPLIANCE Temperature 36.6 C (97.9 F) 08/24/2017 8:33 AM MANAGER OF COMPLIANCE Respiratory Rate 18 08/24/2017 8:33 AM MANAGER OF COMPLIANCE Oxygen Saturation - - Inhaled Oxygen - - Concentration Weight 91.2 kg (201 lb) 08/24/2017 8:33 AM MANAGER OF COMPLIANCE Height 168 cm (5' 6.14") 08/24/2017 8:33 AM MANAGER OF COMPLIANCE Body Mass Index 32.3 08/24/2017 8:33 AM MANAGER OF COMPLIANCE Plan of Treatment Health Maintenance Due Date [...] - 15 EU/mL Comment: REFERENCE RANGE: Negative<16 Zoobxkuss26-61 Positive>20 Anti SSB Negative 0 - 15 EU/mL Comment: REFERENCE RANGE: Negative<16 Gmtgjrifn18-41 Positive>20 Specimen Performing Laboratory Blood MISYS * ANTI WEBBER BACK TUFTER AB (09/06/2017 12:57 PM) Component Value Ref Range Anti-Sm/BACK TUFTER Negative EU/mL Comment: REFERENCE RANGE: Negative<16 Udrosprco56-68 Positive>20 Specimen Performing Laboratory Blood MISYS * ANTI WEBBER AB (09/06/2017 12:57 PM) Component Value Ref Range Anti-Webber Negative EU/mL Comment: REFERENCE RANGE: Negative<16 Wfbngaxot71-50 Positive>20 Specimen Performing Laboratory Blood MISYS * [...] electronically signed. Glenny Bender M.D. to/penrad:08/24/2017 13:45:04 Flat Clothier: Ms. Louisa Osman RTIlda)(Perry), [facility] letter sent: Benign Exam Mammogram BI-RADS: 2 Benign G0202 Z12.31 Narrative #[id number] - MAMMOGRAM BILAT SCREEN DIGITAL BILATERAL DIGITAL [...] Interface, Rad/Mammog In - 08/24/2017 2:02 PM MANAGER OF COMPLIANCE #[id number] - MAMMOGRAM BILAT SCREEN DIGITAL BILATERAL DIGITAL [...] electronically signed. Glenny Bender M.D. to/penrad:08/24/2017 13:45:04 Flat Clothier: Ms. Louisa Osman RT(R)(M), [facility] letter sent: Benign Exam Mammogram BI-RADS: 2 [...] 150-199 mg/dL High: 200-499 mg/dL Very High: >lv=439 mg/dL HDL 53 40 - 60 mg/dL Comment: Increased CHD risk: <40 mg/dL Decreased CHD risk: >60 mg/dL LDL 87 mg/dL Comment: REFERENCE RANGE: Optimal: <100 mg/dL Near Optimal: 100-129 mg/dL Borderline High: 130-159 mg/dL High: 160-189 mg/dL Very High: >su=462 mg/dL Specimen Performing Laboratory Blood MISYS * [...] Ref Range Color Yellow Clarity Clear Spec [place] 1.015 1.001 - 1.035 pH 6.0 5 - 8 Protein Negative NEG Glucose Negative NEG Ketone Negative NEG Bilirubin Negative NEG Nitrate Negative NEG Urobilinogen 0.2 0.2 - 1.0 EU/dL Leukocyte Negative NEG Blood Negative NEG Specimen Performing Laboratory Urine MISYS after 02/21/2017
--- OUTSIDE RECORDS SUMMARY | 2019-04-23 21:20 | XMS REPORT | Summary of Care ---
Author Author [facility] Unknown Address Unknown Phone Unavailable Care Team Providers Care Platform Engineer Name Role Phone [facility] Unavailable Chay GRAHAM MD [place], SUHAS Fine Unavailable Unavailable SANTOS Riggs, SUHAS Cartwright Unavailable Unavailable Unavailable Functional Status Name Dates Details Functional status health issues are not documented Status: Name Dates Details Cognitive status health issues are not documented Status: Problems Name Dates Details Generalized anxiety disorder (300.02, F41.1) Status: Active Burning with urination (788.1, R30.0) Status: Active Acute urinary tract infection (599.0, N39.0) Status: Active Chest pain (786.50, R07.9) Status: Active Palpitations (785.1, R00.2) Status: Active Symptoms of upper respiratory infection (URI) (786.09, R09.89) Status: Active Body aches (780.96, R52) Status: Active Influenza A (487.1, J10.1) Status: Active Ventricular tachycardia (paroxysmal) (427.1, I47.2) Status: Active APC (atrial premature contractions) (427.61, I49.1) Status: Active Systemic lupus erythematosus (710.0, M32.9) Status: Active Need for immunization against influenza (V04.81, Z23) Status: Active Sleep disorder (780.50, G47.9) Status: Active Need for influenza vaccination (V04.81, Z23) Status: Active Varicose veins of legs (454.9, I83.93) Status: Active BMI 30.0-30.9,adult (V85.30, Z68.30) Status: Active Headache, migraine (346.90, G43.909) Status: Active Urinary tract infection (599.0, N39.0) Status: Active Breast cancer screening (V76.10, Z12.39) Status: Active Gastro-esophageal reflux disease with esophagitis (530.11, K21.0) Status: Active Hypothyroidism (244.9, E03.9) Status: Active BMI 31.0-31.9,adult (V85.31, Z68.31) Status: Active Medications Name Dates Details Levothyroxine Sodium 88 MCG Oral Tablet TAKE 1 TABLET BY MOUTH ONCE DAILY AND (1.5) 1 & ONE-HALF TABLETS ON SUNDAYS Quantity: 40 [facility] TRISH * Start : 17-May-2017 Active Hydroxychloroquine Sulfate 200 MG Oral Tablet TAKE 1 TABLET DAILY * Refills: 0 Active Pantoprazole Sodium 40 MG Oral Tablet Delayed Release TAKE 1 TABLET Daily 1 hr before meal * Quantity: 1 Refills: 5 [facility] N.P[facility] TRISH * Start : 18-Jan-2018 Active 30 Tablet Bottle AZO Urinary Pain Relief 97.5 MG TABS 1 TABLET 3 TIMES DAILY * Refills: 0 [facility] N.P., TRISH * Start : 09-Nov-2018 Active Ciprofloxacin HCl - 500 MG Oral Tablet TAKE 1 TABLET EVERY 12 HOURS DAILY. * Quantity: 10 Refills: 0 [facility] N.P., TRISH * Start : 18-Apr-2019 Active Nortriptyline HCl - 10 MG Oral Capsule TAKE 1 CAPSULE BEDTIME * Quantity: 30 Refills: 5 [facility] TRISH * Start : 18-Apr-2019 Active SUMAtriptan Succinate 100 MG Oral Tablet TAKE 1 TABLET AT ONSET OF MIGRAINE HEADACHE. MAY REPEAT IN 2 HOURS IF NEEDED. * Quantity: 1 Refills: 5 [facility] N.P., TRISH * Start : 18-Apr-2019 Active 9 Tablet Bottle Allergies and Adverse Reactions Name Dates Details Dyazide CAPS (Allergy) Status: Active Mobic TABS (Allergy) Status: Active Plaquenil TABS (Allergy) Status: Active Past Medical History Name Dates Details History of allergic rhinitis (V12.69, Z87.09) Status: Resolved History of bronchitis (V12.69, Z87.09) Status: Resolved History of Sinusitis (473.9, J32.9) Status: Resolved Procedures Procedure Dates Details [[facility]] CULTURE, URINE, ROUTINE Date: 18-Apr-2019 MA Digital Mammo Screening [place] G0202 Date: 18-Apr-2019 History of Tubal Ligation Completed History of Section Completed Immunization Name Dates Details Fluzone INJ Lot #: [id number] on: 13-May-2016 Fluzone Quadrivalent 0.5 ML Intramuscular Suspension Prefilled Syringe Lot #: [id number] on: 30-Jun-2017 Family History Name Dates Details Family history of essential hypertension (V17.49, Z82.49) Status: Active Social History Name Dates Details - Status: Name Dates Details Current every day smoker Former smoker Vital Signs Date Test Result Details [id number] Physical Findings 0 Status: Comments: Alcohol Screen - How many times in the past yr have you had 5 (for M) or 4 (for F) or 4 (for all > 65yrs) or more drinks in a day? [id number] BP Systolic 105 mm[Hg] Status: Comments: Location: LUE; Position: Sitting BP Diastolic 73 mm[Hg] Status: Comments: Location: LUE; Position: Sitting Height 68 in Status: Weight 206 lb Status: Body Mass Index Calculated 31.32 kg/m2 Status: Body Surface Area Calculated 2.07 m2 Status: Temperature 99 f Status: Comments: Method: Temporal Respiration Rate 16 /min Status: Heart Rate 71 /min Status: Results Date Description Value Details [id number] [O] Urine Dipstick (In Office) Glucose NORMAL (Normal) LEUKOCYTES ++ (Abnormal) NITRITE POSITIVE (Abnormal) UROBILINOGEN NORMAL (Normal) PROTEIN NEGATIVE (Normal) pH 5 (Normal) URINE BLOOD TRACE SPECIFIC GRAVITY 1.010 (Normal) KETONES NEGATIVE (Normal) BILIRUBIN NEGATIVE (Normal) COLOR URINE ORANGE (Abnormal) Plan of Care Name Dates Details Planned Observations [[facility]] CULTURE, URINE, ROUTINE On: 18-Apr-2019 Intent Planned Goals not documented Planned Encounters Appointment; TRISH ARBOLED[facility] NP On: 03-May-2019 9:30 Interventions Provided Labs/Procedures/Imaging* [O] Urine Dipstick (In Office); Done: 13 May 2016 Instructions* Patient Specific Education Given; Done: 13 May 2016 Medications/Immunizations Administered* Fluzone INJ; Done: 13 May 2016 Instructions Name Dates Details Instructions not documented Encounters Appointment; TRISH ARBOLEDA NP Encounter Diagnosis: Problem not documented On: 13-May-2016 13:45
[2019-04-23] MEDS ORDERED: KETOROLAC TROMETHAMINE 30 MG/ML VIAL IV STA (22:20)
--- NOTE | 2019-04-23 22:27 | Diagnostic Imaging Report ---
CT BRAIN WO HISTORY: Migraine COMPARISON: None. TECHNIQUE: Noncontrast axial scans were obtained from skull base to the vertex. Coronal and sagittal reconstructions obtained from the axial data. One or more of the following dose reduction techniques were used: Automated exposure control, adjustment of the mA and/or kV according to patient size, and/or utilization of iterative reconstruction technique. DISCUSSION: Scalp/Skull: Unremarkable. Brain sulci: Appropriate for patient's age. Ventricles: Normal in size and configuration. No hydrocephalus. Extra-axial spaces: No masses or fluid collections. Minimal carotid siphon calcifications. Parenchyma: Subtle globi pallidi calcification is likely physiologic. No mass, hemorrhage, or large vascular territory acute infarct. Dural sinuses: No abnormal densities. Sellar/Suprasellar region: Intact. Skull base: Intact. Incidental findings: None. IMPRESSION: No acute intracranial abnormalities. Signed by: Dr. Bang Jon M.D. on 04/23/2019 10:24 PM
[2019-04-23] MEDS ORDERED: DIPHENHYDRAMINE HCL INJ 50 MG/ML VIAL IV ONE (22:30)
[2019-04-23] MEDS ORDERED: METOCLOPRAMIDE HCL 10 MG/2ML VIAL IV ONE (22:30)
[2019-04-23] MEDS ORDERED: SODIUM CHLORIDE 0.9% 1000ML 1,000 ML IV SCH (22:30)
[2019-04-23 22:47] LABS: BASOPHILS % 0.3 % (0.0-1.0); EOSINOPHILS # (AUTO) 0.1 (0.0-0.4); HEMATOCRIT 40.9 % (34.2-44.1); HEMOGLOBIN 13.4 g/dL (12.0-16.0); LYMPHOCYTES % 28.6 % (18.0-39.1); MEAN CORPUSCULAR HEMOGLOBIN 31.3 pg (28-32); MEAN CORPUSCULAR HGB CONC 32.8 g/dL (31-35); MEAN CORPUSCULAR VOLUME 95.6 fL (81-99); MONOCYTES # (AUTO) 0.6 (0.2-0.8); MONOCYTES % 8.1 % (4.4-11.3); NEUTROPHILS # (AUTO) 4.3 (2.1-6.9); NEUTROPHILS % 61.7 % (38.7-80.0); PLATELET COUNT 284 x10e3/uL (140-360); RED BLOOD COUNT 4.28 x10e6/uL (3.6-5.1); RED CELL DISTRIBUTION WIDTH 12.5 % (11.7-14.4)
[2019-04-23 23:15] LABS: ALANINE AMINOTRANSFERASE 24 IU/L (0-55); ALBUMIN 4.2 g/dL (3.5-5.0); ALBUMIN/GLOBULIN RATIO 1.2 (0.8-2.0); ALKALINE PHOSPHATASE 102 IU/L (40-150); ANION GAP 14.7 mmol/L (8-16); BLOOD UREA NITROGEN 12 mg/dL (7-26); BUN/CREATININE RATIO 15 (6-25); CARBON DIOXIDE 29 mmol/L (22-29); CHLORIDE 101 mmol/L (98-107); EST GLOMERULAR FILTRATION RATE > 60 ML/MIN (60-); GLUCOSE 100 mg/dL (74-118); POTASSIUM 3.7 mmol/L (3.5-5.1); SODIUM 141 mmol/L (136-145)
[2019-04-24] MEDS ORDERED: FIORINAL 50-321 EACH PO (00:02)
[2019-04-24] MEDS ORDERED: REGLAN10 MG PO (00:59)
[2019-04-24 01:05] VITALS: BP 125/82
== END 2019-04-24 01:15 | disposition home or self-care (01) ==
LOC: ER 21:16
DX: G43.109 Migraine with aura, not intractable, without status migrainosus (principal); F32.9 Major depressive disorder, single episode, unspecified; M32.9 Systemic lupus erythematosus, unspecified
CPT/HCPCS: 36415; 70450; 80053; 84702; 85025; 96374; 99284; J1200; J1885; J2765; J7030